=== PATIENT | female | born 1995 | race Caucasian/White ===

== ENCOUNTER 2022-08-03 14:03 | Outpatient (CLI) | payer OTHER, SELFPAY ==
[2022-08-03 17:14] LABS: Hepatitis B Surface Antigen* Negative (Negative)
[2022-08-03 17:25] LABS: HIV 1/2/P24 Combo Screen* Negative (Negative)
[2022-08-03 17:31] LABS: Hepatitis C Virus Antibody* Negative (Negative)
[2022-08-03 18:17] LABS: Chlamydia DNA Amplified* NOT DETECTED (No Detected); GC DNA Amplified* NOT DETECTED (No Detected)
[2022-08-05 17:19] LABS: Varicella-Zoster Virus Ab, IgG 580.3 IV
[2022-08-05 17:24] LABS: Rubella Antibody IgG 43.2 IU/mL
[2022-08-05 17:39] LABS: Rapid Plasma Reagin (RPR) Non Reactive (Non Reactive)
== END 2022-08-03 14:04 | disposition home or self-care (01) ==
PROVIDERS: PCP Family Medicine; Visit Provider Registered Nurse
DX: Z34.91 Encounter for supervision of normal pregnancy, unspecified, first trimester (principal); Z3A.10 10 weeks gestation of pregnancy
CPT/HCPCS: 76801; 84443; 86592; 86703; 86762; 86787; 86803; 86850; 86900; 86901; 87086; 87340; 87491; 87591

== ENCOUNTER 2022-10-10 08:08 | Outpatient (CLI) | payer OTHER, SELFPAY ==
--- NOTE | 2022-10-10 08:15 | CRLHL7_ITS ---
For Patients: As a result of the Century Cures Act, medical imaging exams and procedure reports are released immediately into your electronic medical record. You may view this report before your referring provider. If you have questions, please contact your health care provider. INDICATION: Evaluate anatomy. COMPARISON: 08/03/2022 TECHNIQUE: Real time doll scale imaging of the fetus was performed as well as color Doppler analysis of the umbilical vessels. FINDINGS: Sonographic imaging demonstrates a single living intrauterine gestation. Fetus demonstrates a regular cardiac rate of 166 beats per minute. Fetus has a variable position. The placenta lies posteriorly without evidence of placenta previa. The edge of the placenta is 5.7 cm from the internal cervical os. Amniotic fluid volume appears normal. Single deepest vertical pocket: 4.3 cm. The cervix is closed and measures 3.8 cm in length. The composite ultrasound gestational age is calculated at 19 weeks 0 days with an estimated sonographic due date of 03/06/2023. The estimated weight is 254 grams which lies at the less than 3rd %. The following biometric measurements were obtained: Biparietal diameter: 4.2 cm/18 weeks 5 days 4th% Head circumference: 16.1 cm/18 weeks 6 days less than 3rd% Abdominal circumference: 14.1 cm/19 weeks 4 days 20th% Femur length: 2.6 cm/17 weeks 5 days less than 3rd% The HC/AC ratio measures: 1.14 range (1.09-1.26) On anatomic survey, there is a normal appearance of the cerebral ventricles, cavum septi pellucidi, cisterna magna and cerebellum. The nose, lips, and facial profile are not well-visualized. The cervical, thoracic and lumbar spine are well visualized and appear normal. The four-chamber heart, left and right ventricular outflow tracts are not well visualized. The diaphragm and stomach appear normal. The kidneys and bladder also appear normal. There is a normal three-vessel cord and cord insertion site. The four extremities appear normal. IMPRESSION: Sonographic gestational age 19 weeks 0 days and sonographic due date 03/06/2023. Sonographic age is 9 days behind the clinical age. Estimated weight less than 3rd percentile. Abdominal circumference 20th percentile. HC and FL less than 3rd percentile. BPD 4th percentile. Incomplete visualization of the face and four-chamber heart. Incomplete visualization of the bowel echotexture. Follow-up in 1-2 weeks recommended. Dictated by Armond Guthrie MD @ 10/10/2022 10:10:39 AM (Electronically Signed)
== END 2022-10-10 08:09 | disposition home or self-care (01) ==
LOC: US 08:09
PROVIDERS: PCP Family Medicine; Visit Provider Obstetrics & Gynecology
DX: Z34.92 Encounter for supervision of normal pregnancy, unspecified, second trimester (principal); Z3A.19 19 weeks gestation of pregnancy
CPT/HCPCS: 76805; 76819; 76820

== ENCOUNTER 2022-11-30 07:50 | Outpatient (CLI) | payer OTHER, SELFPAY | END 2022-11-30 07:51 | disposition home or self-care (01) | LOC: NFLDREF 12-01 03:18 | PROVIDERS: PCP Family Medicine; Referring Provider Family Medicine; Visit Provider Obstetrics & Gynecology | DX: Z34.93 Encounter for supervision of normal pregnancy, unspecified, third trimester (principal); Z3A.28 28 weeks gestation of pregnancy | CPT/HCPCS: 82951; 82952 ==

== ENCOUNTER 2023-12-11 08:55 | Outpatient (CLI) | payer OTHER, SELFPAY | END 2023-12-11 08:56 | disposition home or self-care (01) | LOC: FRMREF 08:57 | PROVIDERS: PCP Family Medicine; Visit Provider Obstetrics & Gynecology | DX: Z13.220 Encounter for screening for lipoid disorders (principal) | CPT/HCPCS: 80061 ==

== ENCOUNTER 2024-01-08 11:46 | Outpatient (CLI) | payer OTHER, SELFPAY ==
[2024-01-08 15:33] LABS: Chlamydia DNA Amplified* NOT DETECTED (No Detected); GC DNA Amplified* NOT DETECTED (No Detected)
== END 2024-01-08 11:47 | disposition home or self-care (01) ==
PROVIDERS: PCP Family Medicine; Visit Provider Registered Nurse
DX: R10.2 Pelvic and perineal pain (principal)
CPT/HCPCS: 87086; 87491; 87591

== ENCOUNTER 2024-07-14 13:54 | Outpatient (REF) | payer OTHER, SELFPAY ==
[2024-07-14 16:24] LABS: Basophils Absolute Auto 0.03 K/uL (0.00-0.30); Basophils Percent Auto 0.3 % (0.0-3.0); Eosinophils Absolute Auto 0.11 K/uL (0.00-0.50); Eosinophils Percent Auto 1.3 % (0.0-7.0); Hematocrit 44.1 % (33.0-51.0); Immature Granulocytes Abs Auto 0.01 K/uL (0.00-0.30); Immature Granulocytes Pct Auto 0.1 %; Lymphocytes Absolute Auto 3.14 K/uL (0.90-2.90); Lymphocytes Percent Auto 35.9 % (20-44); Mean Corpuscular HGB Conc 34 gm/dL (32-36); Mean Corpuscular Hemoglobin 30 pg (26-34); Mean Corpuscular Volume 89 fL (80-100); Neutrophils Absolute Auto 5.01 K/uL (1.7-7.0); Neutrophils Percent Auto 57.4 % (42.0-72.0); Platelet Count* 330 K/uL (140-440); RDW Coefficient of Variation % 12.9 % (11.5-15.5); Red Blood Count 4.97 m/uL (4.00-5.20); White Blood Count* 8.74 K/uL (4.50-11.00)
[2024-07-14 16:45] LABS: Slide Review Reflex No
[2024-07-14 17:01] LABS: Albumin* 4.6 g/dL (3.3-5.0)
[2024-07-14 17:02] LABS: Chloride* 104 mmol/L (96-114); Potassium* 4.5 mmol/L (3.6-5.1); Sodium* 139 mmol/L (135-149)
[2024-07-14 17:04] LABS: Anion Gap 9 mEq/L (7-15); Bilirubin Total* 0.5 mg/dL (0.1-1.5); Carbon Dioxide* 26 mmol/L (20-32); Cholesterol* 194 mg/dL (90-199); Creatinine* 0.7 mg/dL (0.5-1.5); Estimated Glomerular Filt Rate 121 ml/min
[2024-07-14 17:05] LABS: Alanine Aminotransferase* 47 U/L (4-35); Alkaline Phosphatase* 73 U/L (40-150); Aspartate Amino Transferase* 27 U/L (12-35); Blood Urea Nitrogen* 15 mg/dL (5-24); Glucose* 93 mg/dL (60-115); Total Protein* 7.3 g/dL (6.0-8.3); Triglycerides* 237 mg/dL (40-149)
[2024-07-14 17:06] LABS: Calcium* 9.9 mg/dL (8.4-10.6); HDL Cholesterol* 41 mg/dL (>=50); LDL Cholesterol Calculated 106 mg/dL (<100)
[2024-07-14 17:09] LABS: Hemoglobin A1C* 4.9 % (0-5.6)
[2024-07-14 17:28] LABS: Free T4 Free Thyroxine* 1.31 ng/dL (0.70-1.85)
[2024-07-14 18:01] LABS: Vitamin B12* 719 pg/mL (243-894)
== END 2024-07-14 13:55 | disposition home or self-care (01) ==
LOC: NPINS 13:54
PROVIDERS: PCP Family Medicine; Visit Provider Nurse Practitioner Family
DX: E66.9 Obesity, unspecified (principal)
CPT/HCPCS: 80053; 80061; 82607; 83036; 84439; 84443; 85025

== ENCOUNTER 2024-12-21 20:24 | Emergency (ER) | payer OTHER, SELFPAY ==
--- OUTSIDE RECORDS SUMMARY | 2024-12-21 20:26 | XMS_ITS | Clinical Summary ---
Author Organization [facility] Address [address] [place] [address] Care Team Providers Care Wood Patternmaker Apprentice Name Role Phone Heri Glass MD Primary Care Provider [phone] Alma Crespo MD Unavailable [phone] Tosin Cornejo GC Unavailable Unavailable Chuyita Sevilla GC Unavailable Allergies No known active allergies Medications Prenat w/o P-RK-Qabbkum-FA- DHA (PNV-DHA PO) 2 Active NIFEdipine ER OSMOTIC (ADALAT CC) 60 MG 24 hr tabletIndication s: hypertension Take 1 tablet (60 mg) by mouth daily 30 tablet 3 Active acetaminophen (TYLENOL) 325 MG tabletIndication s: (spontaneous vaginal delivery) Take 2 tablets (650 mg) by mouth every 4 hours as needed for mild pain or fever 60 tablet 3 Active Additional Information Patient not taking.Reported on 02/18/2023 docusate sodium (COLACE) 100 MG capsuleIndicatio ns: (spontaneous vaginal delivery) Take 1 capsule (100 mg) by mouth daily 60 capsule 3 Active Additional Information Patient not taking.Reported on 02/18/2023 ibuprofen (ADVIL/MOTRIN) 800 MG tabletIndication s: (spontaneous vaginal delivery) Take 1 tablet (800 mg) by mouth every 6 hours as needed for other (cramping) 60 tablet 3 Active Additional Information Patient not taking.Reported on 02/18/2023 labetalol (NORMODYNE) 200 MG tabletIndication s: hypertension Take 1 tablet (200 mg) by mouth 2 times daily 60 tablet 1 3 Active Active Problems Patient Care Coordination No te Formatting of this note is d ifferent from the original. Diagnosis [facility] Treatment [facility] Care Plan: For details of imaging, genetic testing and consultations, please see the maternal medical record: Libby Estrella MR#:[id number] Delivery hospital: 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 01/02 To L&D for extended monitoring (elevated HR) GENETIC (and other) TESTING: GeneDx Skeletal Dysplasia Panel negative, [facility] single-gene NIPT low risk, Amnio 10/25 normal microarray PERTINENT MATERNAL CONDITIONS: 1) BMI 37 2) hx macrosomia 3) hx GDM CARE PLAN: 1) Ultrasounds - q3 2) Other Imaging - Echo 10/23 WNL 3) surveillance - Weekly lmt/NST 4) Relocation - 5) care with - [facility] to [facility] 12/12 6) Labs - (look in media tab / care everywhere for results) Blood type: O+ Ab screen: neg HepBSAg: neg Rubella: Immune RPR: NR HIV:neg Hep C: neg GCT: 11/07 162, 11/30 3 hour passed 92, 190, 153,109 GBS: 01/22 POSITIVE 7) Vaccines: Tdap- 12/12/22 Flu Vaccine- 07/2022 Covid- x2 8) PHQ-9: 12/12/22 9) care team and consultations - A) Genetic Counselor - B) Neonatology - 01/09/23 C) Social Work - D) DELIVERY PLAN: 1) Hospital - [facility] 2) Gestational age - 37 3) Route - IOL 02/05 @ 0730 4) Notifications in labor - NICU at delivery 5) Genetics/specimen collection for baby: none BABY PLAN: 1) Baby to go to NICU 2) Imaging to be done - A) immediately after - B) prior to hospital discharge - C) after discharge from the hospital - 3) Consults to be done - A) immediately after - B) prior to hospital discharge - Pediatric Genetics C) after discharge from the hospital - 4) Medications - REFERRING PROVIDER(S): 1) Primary OB Provider: 2) Other Sub-Specialty Provider: 3) Anticipated Pediatric Provider: DEMOGRAPHICS: Patient contact info: [address] [facility] [address] Partner's name: Toby Baby's name: Baby Girl Problem Noted Date Diagnosed Date Gestational hypertension 02/07/2023 Normal labor 02/05/2023 Encounter for triage in patient 023 Immunizations Name Administration Dates Next Due COVID-19 MONOVALENT 12+ (Pfizer) 06/23/2021,05/19 DTAP (<7y) 03/03/2001 DTAP, 5 Pertussis Antigens (Daptacel) 03/03/2001 HIB (PRP-T) 11/03/1997, 7,1996,1995 HPV Quadrivalent 09/08/2007,03/07/2007, 7 HPV9 (Gardasil) 09/08/2007,03/07/2007,10/14/2006 Hepatitis B, Peds (Engerix-B/Recombivax HB) 1996,1996,1996 Influenza (H1N1) 08/04/2009 Influenza Vaccine >6 months,quad, PF 08/03/2022, 09/23/2020,08/04/2009 MMR (MMRII) 04/03/2001,11/03/1997 OPV, trivalent, live 11/03/1997,1996,04/22 Poliovirus, inactivated (IPV) 04/03/2001 ,11/03/1997,1996,1995 TDAP (Adacel,Boostrix) 12/12/2022,02/09/2021, TRIHIBIT (DTAP/HIB, <7y) 11/03/1997,01/1997,1996,1995 Td (Adult), Adsorbed 03/13/2007 Varicella (Varivax) 1997 Social History Tobacco Use Types Packs/Day Years Used Date Smoking Tobacco: Never Smokeless Tobacco: Never Tobacco Cessation:Counseling Given: Not Answered Alcohol Use Standard Drinks/Week Comments Not Currently 0 (1 standard drink = 0.6 oz pur e alcohol) Humiliation, Afraid, Rape, and Kick questionnair e Answer Date Recorded Within the last year, have y ou been afraid of your partner or ex-partner? No 02/18/2023 Within the last year, have y ou been humiliated or emotionally abused in other ways by your partner or ex-partner? No Within the last year, have y ou been kicked, hit, slapped, or otherwise physically hurt by your partner or ex-partner? No 02/18/2023 Within the last year, have y ou been raped or forced to have any kind of sexual activity by your partner or ex-partner? No 02/18/2023 PHQ-2 Answer Date Recorded PHQ-2 Score 0 12/12/2022 [place] Depression Scale Answer Date Recorded Last EPDS Total Score Not on file 02/18/2023 The thought of harming myself has occurred to me . 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 Gender Identity Not on file Sexual Orientation Not on file Last Filed Vital Signs Vital Sign Reading Time Taken Comments Blood Pressure 113/74 02/18/2023 10:39 AM CDT average BP Pulse 81 02/18/2023 10:38 AM CDT Temperature 37 C (98.6 F) 02/08/2023 8:30 AM CDT Respiratory Rate 18 02/08/2023 8:30 AM CDT Oxygen Saturation 98% 02/06/2023 12: 26 AM CDT Inhaled Oxygen Concentration - - Weight 103.9 kg (229 lb 1.6 oz) 023 10:23 AM CDT Height 168.9 cm (5' 6.5) 02/05/2023 4: 10 PM CDT Body Mass Index 36.42 02/05/2023 4:10 PM CDT Plan of Treatment Health Maintenance Due Date Last Done Comments ADVANCE CARE PLANNING 1996 ANNUAL REVIEW OF HM ORDERS 1996 YEARLY PREVENTIVE VISIT 02/23/1999 PAP 02/23/2017 COVID-19 Vaccine ( season) 2024 06/23/2021, 06/02/2021 INFLUENZA VACCINE (#1) 2024 , 09/23/2020, 08/04/2009, Additional history exists PHQ-2 (once per calendar year) 2024 12/12/2022, 12/12/2022 DTAP/TDAP/TD IMMUNIZATION (9 - Td or Tdap) 12/12/2032 12/12/2022, 02/09/2021, 03/12/2011, Additional history exists ZOSTER IMMUNIZATION (1 of 2) 02/23/2046 HEPATITIS B IMMUNIZATION Completed 997, 1996, 1996 HPV IMMUNIZATION Completed 09/08/2007, , 03/07/2007, Additional history exists HEPATITIS C SCREENING Completed 08/03/2022 HIV SCREENING Completed 08/03/2022 MENINGITIS IMMUNIZATION Aged Out No l onger eligible based on patient's age to complete this topic Pneumococcal Vaccine: Pediatrics (0 to 5 Years) and At-Risk Patients (6 to 49 Years) Aged Out No longer eligible based on patient's age to complete this topic Procedures Procedure Name Priority Date/Time Associated Diagnosis Comments ABSTRACT HIV Routine 08/03/2022 2:16 PM EQUIPMENT MANAGER HEPATITIS C (HIM EXTERNAL RESULT) Routine 08/03/2022 2:16 PM EQUIPMENT MANAGER from Last 3 Months or Most Recently Relevant to Health Maintenance Results * ABSTRACT HIV (08/03/2022 2:16 PM EQUIPMENT MANAGER) HIV 1&2 EXT Non-Reacti ve Non-Reacti ve [facility] Blood 08/03/2022 2:16 PM EQUIPMENT MANAGER Narrative [facility] - 08/03/2022 2:16 PM EQUIPMENT MANAGER LAB RESULT [facility] us Provider Outside LAB - HIM EXTERNAL RESULT Edite d Result - Final [facility] [address], [place] [address] [phone] * Hepatitis C (HIM External Result) (08/03/2022 2:16 PM EQUIPMENT MANAGER) Hep C HIM See Scanned Document [facility] 08/03/2022 2:16 PM EQUIPMENT MANAGER Narrative [facility] - 08/03/2022 2:16 PM EQUIPMENT MANAGER LAB RESULT [facility] us Provider Outside LAB - HIM EXTERNAL RESULT Edite d Result - Final [facility] [address] [facility], [place] [address], [facility] [phone] from Last 3 Months or Most Recently Relevant to Health Maintenance Insurance [employer] [place] [address] [facility] [address] Advance Directives For more information, please contact: [phone] * Full Code (Latest Code Status on File) Date Activated Date Inactivated Comments 02/05/2023 9:41 AM 02/06/2023 12:58 AM All basic a nd advanced life-sustaining interventions are performed as appropriate Question Answer Comments Code status determined by: Unable to dis cuss and no AD/POLST on file; continue PREVIOUSLY ORDERED code status Care Teams Wood Patternmaker Apprentice Relationship Specialty Start Date End Date Heri Glass MD PCP - General Family Medicine 10/23/22 Alma Crespo MD [facility] [address] [place] [address] rubber chemist 12/07/22 Tosin Cornejo GC [facility] [address] [place] [address] Genetic Counselor Genetic Community Service Officer 01/02/23 Chuyita Sevilla GC [address] [address] Genetic Counselor Genetic Counselor, [place] 01/02/23
--- OUTSIDE RECORDS SUMMARY | 2024-12-21 20:26 | XMS_ITS | Encounter Summary ---
Author Organization [facility] Address [facility] [place] [address] Care Team Providers Care Copy Writer Name Role Phone Heri Glass MD Primary Care Provider Alma Crespo MD Unavailable [phone] Tosin Cornejo GC Unavailable Unavailable Chuyita Sevilla GC Unavailable Lola Weston MD Unavailable [phone] Encounter Details Date Type Department Care Team (Late st Contact Info) Description 07/10/2023 [facility] Medical Advice [facility] [place] [address] [place] [address] Renetta Branham, RN Social History Tobacco Use Types Packs/Day Years Used Date Smoking Tobacco: Never Smokeless Tobacco: Never Alcohol Use Standard Drinks/Week Comments Not Currently [...] Answer Date Recorded PHQ-2 Score 0 12/12/2022 [place] Depression Scale Answer Date Recorded Last EPDS Total Score Not on file 02/18/2023 The thought of harming myself has occurred to me . 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 Gender Identity Not on file Sexual Orientation Not on file documented as of this encounter Plan of Treatment Not on file documented as of this encounter Visit Diagnoses Not on filedocumented in this encounter Additional Health Concerns Assessment Noted Time PHQ-9 Depression Total Score: 0 12/13/19 11:17 AM CDT documented as of this encounter Care Teams Copy Writer Relationship Specialty Start Date End Date Heri Glass MD PCP - General Family Medicine 10/23/22 Alma Crespo MD [facility] [address] [place] [address] repairer resistance welding machines 12/07/22 Tosin Cornejo GC [facility] [address] [place] [address] Genetic Counselor Genetic Agile Tester 01/02/23 Chuyita Sevilla GC [address] [address] Genetic Counselor Genetic Counselor, [place] 01/02/23 Lola Weston MD [address] [place] [id number] Assigned OBGYN Provider 06/15/2307/10 documented as of this encounter
[2024-12-21 20:37] VITALS: BP 137/82; PULSE 85; RESP 16; TEMP 36.8; O2SAT 98; BMI 34.9
--- NOTE | 2024-12-21 20:43 | ED.ABDPAIN ---
HPI - Abdominal Pain General Time Seen by Provider: 20:43 Date Seen: 12/21/24 Chief Complaint: Abdominal Pain Stated Complaint: pain abdominal area/ pain in back Time Seen by Provider: 12/21/24 20:26 History of Present Illness HPI narrative: 29-year-old female who comes in today with about a week of intermittent abdominal pain, increased pain tonight with localization left lower quadrant and left side of the back. Has a history of gallstones as well as kidney stones and says this feels similar. Denies hematuria or dysuria, denies diarrhea. When pain was severe tonight, did have some nausea but otherwise no nausea vomiting. Has not been taking anything for her pain. Related Data Home Medications ?Medication ?Instructions ?Recorded ?Confirmed bupropion HCl 150 mg 24 hr tablet, 150 mg PO QAM 12/11/23 02/03/24 extended release estradiol 0.5 mg-progesterone 100 cap PO 12/11/23 02/03/24 mg capsule metformin 500 mg tablet 500 mg PO BID 01/08/24 02/03/24 Allergies Allergy/AdvReac Type Severity Reaction Status Date / Time No Known Allergies Allergy Unknown Verified 02/03/24 09:41 [facility] Medical History Gestational hypertension ?O13.9 - Gestational [-induced] hypertension without significant proteinuria, unspecified trimester (ICD-10) IUGR (intrauterine growth restriction) affecting care of mother (10/10/22) ?O36.5990 - Maternal care for other known or suspected poor growth, unspecified trimester, not applicable or unspecified (ICD-10) Macrosomia ?P08.0 - Exceptionally large baby (ICD-10) Spontaneous vaginal delivery ?O80 - Encounter for full-term uncomplicated delivery (ICD-10) History of oral contraceptive use ?Z92.0 - Personal history of contraception (ICD-10) History of chronic otitis media ?Z86.69 - Personal history of other diseases of the nervous system and sense organs (ICD-10) Gestational diabetes mellitus (GDM) ?O24.419 - Gestational diabetes mellitus in , unspecified control (ICD-10) Flank pain ?R10.9 - Unspecified abdominal pain (ICD-10) Surgical History History of elective ?Z98.890 - Other specified postprocedural states (ICD-10) Family History Family/Other Breast cancer Paternal Grandmother Colon cancer Father Colon cancer High blood pressure Mother Thyroid cancer Maternal Grandmother Thyroid disease Social History Narrative: Cis-gender, heterosexual woman Relationship status: . Spouse/Partner: Toby Education: [] Occupation: [] Tobacco: Lifetime nonsmoker E-cigarettes: [] Alcohol: [] Illicit/recreational drugs: No Safety concerns at home or work: No Dietary restriction(s): No Exercise: No. Patient's father is still living Patient's mother is still living Patient's sister is still living- 2 older sisters Non-smoker Smoking Status: Never smoker Non-prescribed substance use: denies use Exam Narrative: Exam Narrative: General: Well-developed and well-nourished, no acute distress Head: Atraumatic and normocephalic Eyes: Pupils are equal reactive, extraocular motions intact, conjunctiva clear ENT: External nose and ears are normal, posterior pharynx without erythema or exudate Neck: No midline cervical tenderness, full spontaneous range of motion the neck, trachea midline, no adenopathy Heart: Regular rate and rhythm no murmurs or thrills Lungs: Clear to auscultation bilaterally without wheezes or crackles Abdomen: Left lower quadrant tenderness, left CVA tenderness Musculoskeletal: No tenderness, deformity, or edema Neurologic: Awake, alert, and oriented x3, no gross focal neurologic deficits, cranial nerves intact as tested Psych: Mood and affect are appropriate Skin: No rashes Const: Vital Signs, click to edit/add: Vital Signs - 24 hr 12/21/24 20:37 Temperature 98.3 F Pulse Rate [Pulse Oximeter] 85 Respiratory Rate 16 Blood Pressure [Ri ght Upper Arm] 137/82 Pulse Oximetry 98 Oxygen Delivery Me thod Room Air Course Course ED Course: Reviewed most recent monotyper visit which was January 2024 for complex could be an abnormal Pap. Patient presents today with generalized abdominal pain and bloating which is been intermittent for the last week, more severe left flank and left lower quadrant pain tonight associated with nausea. No urinary symptoms, no fever chills. On exam, vital is stable, left lower quadrant tenderness and left CVA patient's percussion. No right upper quadrant or right lower quadrant tenderness. Suspect kidney stone, ovarian pathology also possible but a little bit less likely. Labs are ordered along with CT scan abdomen and pelvis, patient denies possibility of as she just had her period and spouse has had a vasectomy Reevaluation(s) Time of Reevaluation #1: 21:45 Reevaluation #1: Urinalysis independently interpreted by me with hematuria but no evidence for infection, labs independently interpreted by me with slight elevation of the white blood cell count. CT scan of the abdomen and pelvis independently interpreted by me demonstrates a 2 mm stone at the UVJ which should pass. Discussed this with patient and she is stable for discharge. Follow-up with primary care, strainer given to catch stone for analysis. Time of Reevaluation #2: 21:53 Reevaluation #2: Updated patient with findings and plan, stable for discharge. Vital Signs Vital signs: Initial Vital Signs Temperature 98.3 F 12/21/24 20:37 Temperature Source Temporal Artery Scan 12/21/24 20:37 Pulse Rate 85 12/21/24 20:37 Respiratory Rate 16 12/21/24 20:37 Blood Pressure 137/82 12/21/24 20:37 Blood Pressure Mean 100 12/21/24 20:37 Blood Pressure Position Sitting 12/21/24 20:37 Pulse Oximetry 98 12/21/24 20:37 Oxygen Delivery Method Room Air 12/21/24 20:37 Vital Signs Temperature 98.3 F 12/21/24 20:37 Pulse Rate 85 12/21/24 20:37 Respiratory Rate 16 12/21/24 20:37 Blood Pressure 137/82 12/21/24 20:37 Pulse Oximetry 98 12/21/24 20:37 Oxygen Delivery Method Room Air 12/21/24 20:37 Temperature 98.3 F 12/21/24 20:37 Pulse Rate 85 12/21/24 20:37 Respiratory Rate 16 12/21/24 20:37 Blood Pressure 137/82 12/21/24 20:37 Pulse Oximetry 98 12/21/24 20:37 Oxygen Delivery Method Room Air 12/21/24 20:37 Medications Administered Medications: Generic Name Dose Route Start Last Admin Trade Name Freq PRN Reason Stop Dose Admin Ondansetron HCl 4 mg 12/21/24 21:15 12/21/24 21:20 Ondansetron 2 Mg/Ml Inj IVP 12/21/24 21:16 4 mg ONCE ONE Administration Discontinued Medications Generic Name Dose Route Start Last Admin Trade Name Garcia PRN Reason Stop Dose Admin Ketorolac Tromethamine 15 mg 12/21/24 21:01 12/21/24 21:11 Ketorolac 15 Mg/Ml Inj IVP 12/21/24 21:02 15 mg ONCE ONE Administration MDM - Abdominal Pain Lab Data Labs: Lab Results 12/21/24 12/21/24 Range/Units 20:41 21:05 WBC 11.09 H (4.50-11.00) K/uL RBC 4.97 (4.00-5.20) m/uL Hgb 15.0 (12.0-16.0) gm/dL Hct 42.8 (33.0-51.0) % MCV 86 (80-100) fL MCH 30 (26-34) pg MCHC 35 (32-36) gm/dL RDW Coeff of Travis 12.5 (11.5-15.5) % Plt Count 372 (140-440) K/uL Neut % (Auto) 61.5 (42.0-72.0) % Lymph % (Auto) 31.5 (20-44) % [place] % (Auto) 5.1 (0.0-11.0) % Eos % (Auto) 1.4 (0.0-7.0) % Baso % (Auto) 0.2 (0.0-3.0) % Neut # (Auto) 6.80 (1.7-7.0) K/uL Lymph # (Auto) 3.50 H (0.90-2.90) K/uL [place] # (Auto) 0.60 (0.00-0.90) K/UL Eos # (Auto) 0.20 (0.00-0.50) K/uL Baso # (Auto) 0.00 (0.00-0.30) K/uL Abs Immat Gran (auto) 0.00 (0.00-0.30) K/uL Imm/Tot Granulo (auto) 0.3 % Sodium 140 (135-149) mmol/L Potassium 3.8 (3.6-5.1) mmol/L Chloride 104 (96-114) mmol/L Carbon Dioxide 24 (20-32) mmol/L Anion Gap 12 (7-15) mEq/L BUN 16 (5-24) mg/dL Creatinine 1.0 (0.5-1.5) mg/dL Estimated Creat Clear 78.41 Estimated GFR 79 ml/min Glucose 100 (60-115) mg/dL Calcium 10.0 (8.4-10.6) mg/dL Urine Color Yellow (Yellow) Urine Appearance Cloudy A (Clear) Urine pH 6.0 (5.0-8.5) Ur Specific [place] 1.025 (1.000-1.030) Urine Protein Negative (Negative) Urine Glucose (UA) Negative (Negative) Urine Ketones Negative (Negative) Urine Blood 3+ A (Negative) Urine Nitrite Negative (Negative) Urine Bilirubin Negative (Negative) Urine Urobilinogen 0.2 (0.2-1.0) Ur Leukocyte Esterase Negative (Negative) Urine RBC >100 A (0-2) Urine WBC 0-2 (0-5) Ur Squamous Epith Cells Moderate A (None-Few) Urine Bacteria Few A (None) Urine HCG, Qual Negative (Negative) Discharge Plan Discharge Clinical Impression: Calculus of ureterovesical junction (UVJ) Patient Disposition: Home, Self-Care Condition: Stable Instructions: How to Strain Your Urine (ED), Ureteral Stones (ED) Additional Instructions: Tylenol and ibuprofen as needed for pain. Zofran as needed for nausea, oxycodone as needed for severe pain. Strain the urine to try to catch your stone, take to the clinic for stone analysis. Follow-up primary care in 5-7 days Activity Level: No Restrictions Discharge Diet: Regular Prescriptions: No Action bupropion HCl 150 mg tablet extended release 24 hr 150 mg PO QAM estradiol-progesterone 0.5-100 mg capsule PO metformin 500 mg tablet 500 mg PO BID Follow Up/Referrals: Heri Glass MD [Primary Care Provider] - Stand Alone Forms: [employer] Info Instructions
[2024-12-21 20:47] LABS: Appearance Urine Cloudy (Clear); Bilirubin Urine Negative (Negative); Blood Urine 3+ (Negative); Color Urine Yellow (Yellow); Glucose Urine Negative (Negative); Ketones Urine Negative (Negative); Leukocyte Esterase Urine Negative (Negative); Nitrite Urine Negative (Negative); Protein Urine Negative (Negative); Specific Gravity Urine 1.025 (1.000-1.030); Urobilinogen Urine 0.2 (0.2-1.0)
--- NOTE | 2024-12-21 20:54 | CRLHL7_ITS ---
For Patients: As a result of the Cures Act, medical imaging exams and procedure reports are released immediately into your electronic medical record. You may view this report before your referring provider. If you have questions, please contact your health care provider. INDICATION: Left flank, left lower quadrant pain TECHNIQUE: CT Abdomen and pelvis without i.v. contrast. Coronal and sagittal reformats were obtained. COMPARISON: None FINDINGS: Lower chest: Unremarkable. Liver: Unremarkable. Spleen: Unremarkable. Pancreas: Unremarkable. Gallbladder: Unremarkable. Kidney: There is a 1 mm stone at the left ureterovesicular junction (UVJ) causing mild left hydroureter and trace left renal pelviectasis. Adrenal: Unremarkable. Bowel: The stomach, small bowel, and colon are unremarkable. The appendix is normal in appearance and size. Vascular: Unremarkable. Lymph: Unremarkable. Peritoneum: Unremarkable. No pneumoperitoneum is seen. No significant ascites is noted. Pelvis: Unremarkable. Soft tissue: Unremarkable. Bone: Unremarkable for age. IMPRESSION: 1. There is a 1 mm stone at the left ureterovesicular junction (UVJ) causing mild left hydroureter and trace left renal pelviectasis. Dictated by Tolu Prakash MD @ 12/21/2024 10:07:17 PM Please note that all CT scans at this facility use dose modulation, iterative reconstruction, and/or weight-based dosing when appropriate to reduce radiation dose to as low as reasonably achievable. Dictated by: Tolu Prakash MD @ 12/21/2024 22:07:38 (Electronically Signed)
[2024-12-21 20:57] LABS: RBC Urine >100 (0-2); WBC Urine 0-2 (0-5)
[2024-12-21 20:58] LABS: Bacteria Urine Few; Squamous Epithelial Cell Urine Moderate (None-Few)
--- OUTSIDE RECORDS SUMMARY | 2024-12-21 21:02 | XMS_ITS | Clinical Summary ---
Author Organization [facility] Address [address] [place] [id number] Care Team Providers Care Filing Or Registry Clerk Name Role Phone Heri Glass MD Primary Care Provider Alma Crespo MD Unavailable Tosin Cornejo GC Unavailable Unavailable Chuyita Sevilla GC Unavailable Allergies No known active allergies Medications Prenat w/o J-KF-Pocalpm-FA- DHA (PNV-DHA PO) 2 Active NIFEdipine ER [...] see the maternal medical record: Libby Estrella MR#:[id number] Delivery hospital: [facility] DIAGNOSIS: DIAGNOSIS / DIAGNOSES: 1) Severe [...] 4) Relocation - 5) care with - [facility] to [facility] 12/12 6) Labs - (look in media [...] - D) DELIVERY PLAN: 1) Hospital - [facility] 2) Gestational age - 38 3) [...] Anticipated Pediatric Provider: DEMOGRAPHICS: Patient contact info: [address] [facility] [address] Partner's name: Toby Baby's name: Baby Girl [...] Answer Date Recorded PHQ-2 Score 0 12/12/2022 [place] Depression Scale Answer Date Recorded Last EPDS Total Score Not on file 02/18/2023 The thought of harming myself has occurred to me . 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 Gender Identity Not on file Sexual [...] COVID-19 Vaccine ( season) 2024 06/23/2021, 06/02/2021 PHQ-2 (once per calendar year) 2024 12/12/2022, 12/12/2022 INFLUENZA VACCINE (Season Ended) 2025 08/03/2022, 09/23/2020, 08/04/2009, Additional history exists DTAP/TDAP/TD IMMUNIZATION (9 - Td or Tdap) [...] Comments ABSTRACT HIV Routine 08/03/2022 2:16 PM FIELD STAFF MANAGER HEPATITIS C (HIM EXTERNAL RESULT) Routine 08/03/2022 2:16 PM FIELD STAFF MANAGER from Last 3 Months or Most Recently Relevant to Health Maintenance Results * ABSTRACT HIV (08/03/2022 2:16 PM FIELD STAFF MANAGER) HIV 1&2 EXT Non-Reacti ve Non-Reacti ve [facility] Blood 08/03/2022 2:16 PM FIELD STAFF MANAGER Narrative [facility] - 08/03/2022 2:16 PM FIELD STAFF MANAGER LAB RESULT [facility] [place] Provider Outside LAB - HIM EXTERNAL RESULT Edite d Result - Final [facility] [address] [place], [place] [address] [[email or web address]] [phone] * Hepatitis C (HIM External Result) (08/03/2022 2:16 PM FIELD STAFF MANAGER) Hep C HIM See Scanned Document [facility] 08/03/2022 2:16 PM FIELD STAFF MANAGER Narrative [facility] - 08/03/2022 2:16 PM FIELD STAFF MANAGER LAB RESULT [facility] [place] Provider Outside LAB - HIM EXTERNAL RESULT Edite d Result - Final [facility] [address] , [place] [address], [facility] [phone] from Last 3 Months or Most Recently Relevant to Health Maintenance Insurance [employer] [facility] [address] [employer] Advance Directives For more information, please contact: [phone] * Full Code (Latest Code Status on File) Date Activated Date Inactivated Comments 02/05/2023 9:41 AM 02/06/2023 12:58 AM All basic a nd advanced life-sustaining interventions are performed as appropriate Question Answer Comments Code status determined by: Unable to dis cuss and no AD/POLST on file; continue PREVIOUSLY ORDERED code status Care Teams Filing Or Registry Clerk Relationship Specialty Start Date End Date Heri Glass MD PCP - General Family Medicine 10/23/22 Alma Crespo MD [facility] [address] [place] [address] anesthesiology teacher 12/07/22 Tosin Cornejo GC [facility] [address] [place] [address] Genetic Counselor Genetic Drop Clipper 01/02/23 Chuyita Sevilla GC [address] [address] Genetic Counselor Genetic Counselor, [place] 01/02/23
--- OUTSIDE RECORDS SUMMARY | 2024-12-21 21:02 | XMS_ITS | Encounter Summary ---
Author Organization [place] Address [facility] [place] [address] Care Team Providers Care Risk Developer Name Role Phone Heri Glass MD Primary Care Provider Alma Crespo MD Unavailable Tosin Cornejo GC Unavailable Unavailable Chuyita Sevilla GC Unavailable Lola Weston MD Unavailable [phone] Encounter Details Date Type Department Care Team (Late st Contact Info) Description 07/10/2023 [facility] [place] [address] [address] Renetta Branham, RN Social History [...] Answer Date Recorded PHQ-2 Score 0 12/12/2022 [place] Depression Scale Answer Date Recorded Last EPDS Total Score Not on file 02/18/2023 The thought of harming myself has occurred to me . Never 02/18/2023 Adolescent Education Answer Date Record ed Getting School Help Needed Not on file 05/11 Comments No Sex and Gender Information Value Date Recorded Sex Assigned at Not on file Legal Sex Female 2:39 PM KEY WORKER Gender Identity Not on file Sexual Orientation Not on file documented as of this encounter Plan of Treatment Not on file documented as of this encounter Visit Diagnoses Not on filedocumented in this encounter Additional Health Concerns Assessment Noted Time PHQ-9 Depression Total Score: 0 12/13/19 11:17 AM CDT documented as of this encounter Care Teams Risk Developer Relationship Specialty Start Date End Date Heri Glass MD PCP - General Family Medicine 10/23/22 Alma Crespo MD [facility] [address] [place] [address] digital data analyst 12/07/22 Tosin Cornejo GC [facility] [address] [place] [address] Genetic Counselor Genetic Boiler Operators Supervisor 01/02/23 Chuyita Sevilla GC [address] [address] Genetic Counselor Genetic Counselor, [place] 01/02/23 Lola Weston MD [address] [place] [id number] Assigned OBGYN Provider 06/15/2307/10 documented as of this encounter
[2024-12-21] MEDS: KETOROLAC 15 MG/ML inj IVP (21:11)
[2024-12-21] MEDS: ONDANSETRON 2 MG/ML inj 4 MG IVP (21:20)
[2024-12-21 21:22] LABS: Ur HCG Qualitative* Negative (Negative)
[2024-12-21 21:22] LABS: Basophils Percent Auto 0.2 % (0.0-3.0); Eosinophils Percent Auto 1.4 % (0.0-7.0); Hematocrit 42.8 % (33.0-51.0); Immature Granulocytes Pct Auto 0.3 %; Lymphocytes Percent Auto 31.5 % (20-44); Mean Corpuscular HGB Conc 35 gm/dL (32-36); Mean Corpuscular Hemoglobin 30 pg (26-34); Mean Corpuscular Volume 86 fL (80-100); Monocytes Percent Auto 5.1 % (0.0-11.0); Neutrophils Percent Auto 61.5 % (42.0-72.0); Platelet Count* 372 K/uL (140-440); RDW Coefficient of Variation % 12.5 % (11.5-15.5); Red Blood Count 4.97 m/uL (4.00-5.20); White Blood Count* 11.09 K/uL (4.50-11.00)
[2024-12-21 21:24] LABS: Chloride* 104 mmol/L (96-114); Sodium* 140 mmol/L (135-149)
[2024-12-21 21:25] LABS: Potassium* 3.8 mmol/L (3.6-5.1)
[2024-12-21 21:28] LABS: Anion Gap 12 mEq/L (7-15); Blood Urea Nitrogen* 16 mg/dL (5-24); Carbon Dioxide* 24 mmol/L (20-32); Est. Creatinine Clearance* 78.41; Estimated Glomerular Filt Rate 79 ml/min; Glucose* 100 mg/dL (60-115)
[2024-12-21 21:33] LABS: Slide Review Reflex No
== END 2024-12-21 22:03 | disposition home or self-care (01) ==
PROVIDERS: Family Medicine; Emergency Provider Family Medicine; PCP Family Medicine
DX: N20.1 Calculus of ureter (principal)
CPT/HCPCS: 36415; 74176; 80048; 81001; 81025; 85025; 87086; 96374; 96375; 99284; J1885; J2405

== ENCOUNTER 2025-02-24 08:46 | Outpatient (CLI) | payer OTHER, SELFPAY ==
[2025-02-26 03:57] LABS: HPV Source Cervix
[2025-02-26 16:48] LABS: HPV Genotype 16 by TMA Not Detected; HPV Genotype 18/45 by TMA Not Detected
== END 2025-02-24 08:47 | disposition home or self-care (01) ==
PROVIDERS: PCP Family Medicine; Visit Provider Obstetrics & Gynecology
DX: Z12.4 Encounter for screening for malignant neoplasm of cervix (principal); Z11.51 Encounter for screening for human papillomavirus (HPV); Z13.6 Encounter for screening for cardiovascular disorders; Z13.1 Encounter for screening for diabetes mellitus
CPT/HCPCS: 80061; 82947; 87624; 87625; 88141; 88142

== ENCOUNTER 2025-07-06 09:05 | Outpatient (CLI) | payer OTHER, SELFPAY ==
[2025-07-06 12:53] LABS: Alanine Aminotransferase* 35 U/L (4-35)
[2025-07-06 13:28] LABS: TSH With Reflex to FT4* 0.134 uIU/mL (0.270-4.200)
[2025-07-06 15:36] LABS: Free T4 Free Thyroxine* 1.21 ng/dL (0.70-1.85)
== END 2025-07-06 09:06 | disposition home or self-care (01) ==
LOC: NPINS 09:06
PROVIDERS: PCP Family Medicine; Visit Provider Family Medicine
DX: R53.83 Other fatigue (principal); R94.5 Abnormal results of liver function studies; E66.9 Obesity, unspecified
CPT/HCPCS: 84439; 84443; 84460